=== PATIENT | female | born 2000 | race Caucasian/White ===

== ENCOUNTER 2019-08-27 18:25 | Emergency (ER) | payer OTHER ==
[~2019-08-27] VITALS: Ht 172.7 cm; Wt 70.8 kg
[~2019-08-27 18:25] MED LIST: AMOXICILLIN 50500 M1 PO; CALCIUM 500 +1 EAC5; PRENATAL; [UNRECOGNIZED DRUG - OTHER]
[2019-08-27] MEDS ORDERED: KEFLEX500 M1 PO (18:55)
[2019-08-27 19:01] VITALS: BP 123/82
== END 2019-08-27 19:02 | disposition home or self-care (01) ==
LOC: M.ERS 18:25
DX: L03.011 Cellulitis of right finger (principal); J45.909 Unspecified asthma, uncomplicated; I10 Essential (primary) hypertension; F41.9 Anxiety disorder, unspecified; F17.210 Nicotine dependence, cigarettes, uncomplicated; Z86.2 Personal history of diseases of the blood and blood-forming organs and certain disorders involving the immune mechanism